=== PATIENT | male | born 1975 ===

== ENCOUNTER 2022-11-20 07:00 | Outpatient (CLI) | payer MEDICAID ==
[2022-11-21 01:14] LABS: CHLAMYDIA TRACHOMATIS DNA NEGATIVE (NEGATIVE); NEISSERIA GONORRHOEAE DNA NEGATIVE (NEGATIVE)
== END 2022-11-20 23:59 | disposition home or self-care (01) ==
LOC: LAB.N 07:00
PROVIDERS: ATTEND Nurse Practitioner
DX: R30.0 Dysuria (principal)
CPT/HCPCS: 87086; 87491; 87591; 87661